=== PATIENT | male | born 1935 | race Hispanic/Latino ===

== ENCOUNTER 2017-04-26 22:52 | Emergency (ER) | payer OTHER ==
[~2017-04-26] VITALS: Ht 182.9 cm; Wt 95.3 kg
[2017-04-26] MEDS ORDERED: METFORMIN HYDRO25 GM (23:19)
[2017-04-26] MEDS ORDERED: ENALAPRIL MALEAT5 MG PO (23:19)
[2017-04-27] MEDS ORDERED: TAMIFLU75 MG PO (00:52)
== END 2017-04-27 01:06 | disposition home or self-care (01) ==
LOC: ED 22:52
DX: J10.1 Influenza due to other identified influenza virus with other respiratory manifestations (principal); E11.9 Type 2 diabetes mellitus without complications; I10 Essential (primary) hypertension; Z87.891 Personal history of nicotine dependence; Z79.84 Long term (current) use of oral hypoglycemic drugs; Z79.899 Other long term (current) drug therapy
CPT/HCPCS: 71045; 80053; 81001; 85025; 87502; 99283; J7030